=== PATIENT | female | born 1985 ===

== ENCOUNTER 2017-12-10 12:54 | Emergency (ER) | payer OTHER ==
[2017-12-10] MEDS ORDERED: Acetaminophen TAB* 325 MG PO ONE (14:42)
[2017-12-10 15:45] VITALS: BP 132/73
--- NOTE | 2017-12-10 16:02 | UC ---
Throat Pain/Nasal Alejandro HPI - HPI Summary HPI Summary: c/o chills, fever, since yesterday after kayaking. She has been suffering from nasal and sinus congestion for the past week. States she is on oral contraceptives and stress induced HTN for which she is not taking any medications - History of Current Complaint Chief Complaint: UCRespiratory Stated Complaint: FEVER,DIZZY,TROUBLE BREATHING Time Seen by Provider: 12/10/17 15:28 Hx Obtained From: Patient Hx Last Menstrual Period: 12/03/17 ?: Yes Onset/Duration: Gradual Onset, Lasting Days Severity: Moderate Pain Intensity: 5 Cough: Nonproductive Associated Signs & Symptoms: Positive: Sinus Discomfort, Nasal Discharge - Epiglottits Risk Factors Epiglottis Risk Factors: Negative - Allergies/Home Medications Allergies/Adverse Reactions: Allergies Allergy/AdvReac Type Severity Reaction Status Date / Time No Known Allergies Allergy Verified 12/10/17 13:38 Home Medications: Home Medications Ibuprofen [Advil] 400 mg 12/10/17 [History] PMH/Surg Hx/FS Hx/Imm Hx Previously Healthy: Yes - Surgical History Surgical History: None - Family History Known Family History: Positive: Hypertension - Social History Alcohol Use: Occasionally Substance Use Type: None Smoking Status (MU): Never Smoked Tobacco Review of Systems Constitutional: Fever, Chills ENT: Nasal Discharge, Sinus Pain/Tenderness Respiratory: Cough All Other Systems Reviewed And Are Negative: Yes Physical Exam Triage Information Reviewed: Yes Appearance: Well-Appearing, No Pain Distress, Obese Vital Signs: Initial Vital Signs Temp 101.4 F 12/10/17 13:31 Pulse 92 12/10/17 13:31 Resp 16 12/10/17 13:31 BP 133/91 12/10/17 13:31 Pulse Ox 105 12/10/17 13:31 Vital Signs Reviewed: Yes Eyes: Positive: Conjunctiva Clear ENT: Positive: Hearing grossly normal, Pharynx normal, TMs normal, Sinus tenderness - maxillary b/l Neck: Positive: Supple, Nontender, No Lymphadenopathy Respiratory: Positive: Chest non-tender, Lungs clear, Normal breath sounds, No respiratory distress Cardiovascular: Positive: RRR, No Murmur, Pulses Normal, Brisk Capillary Refill Abdomen Description: Positive: Nontender, No Organomegaly, Soft Bowel Sounds: Positive: Present Throat Pain/Nasal Course/Dx - Course Course Of Treatment: start augmentin as prescribed, PO fluids, rest, f/u with PCP in [place] where she is from - Differential Dx/Diagnosis Provider Diagnoses: maxillary sinusitis Discharge - Sign-Out/Discharge Documenting (check all that apply): Patient Departure, Post-Discharge Follow Up - Discharge Plan Condition: Good Disposition: HOME Prescriptions: Amoxicillin/Clavulanate TAB* [Augmentin TAB 875*] 875 mg PO BID 10 Days #20 tab Patient Education Materials: Amoxicillin/Clavulanate Potassium (By mouth), Sinusitis (ED) Forms: *Work Release Referrals: No Primary Care Phys,NOPCP [Primary Care Provider] - - Billing Disposition and Condition Condition: GOOD Disposition: Home
== END 2017-12-10 16:03 | disposition home or self-care (01) ==
LOC: UCEAST 12:54
DX: J32.0 Chronic maxillary sinusitis (principal); R50.9 Fever, unspecified; Z82.49 Family history of ischemic heart disease and other diseases of the circulatory system
CPT/HCPCS: 99202; A9270-GY; G0463